=== PATIENT | female | born 2000 | race Caucasian/White ===

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

== ENCOUNTER 2018-03-01 03:19 | Emergency (ER) | payer SELFPAY ==
[2018-03-01] MEDS ORDERED: Ondansetron INJ* 2 MG/ML VIAL IV ONE (03:29)
[2018-03-01] MEDS ORDERED: NS 0.9% 1000 ML* 2,000 ML IV ONE (03:29)
--- NOTE | 2018-03-01 03:33 | ED ---
Substance Abuse/Use - HPI Summary HPI Summary: This is elodia Callaway documenting for attending Bao Covarrubias MD. This patient is a 17 year old F BIBA to [facility] or substance abuse. Pt reports drinking alcohol and using marijuana. LEVEL 5 CAVEAT: Exam limited due to the patient being intoxicated - History Of Current Complaint Chief Complaint: EDSubstanceAbuse Stated Complaint: ETOH Time Seen by Provider: 03/01/18 03:21 Hx Obtained From: Patient Hx Last Menstrual Period: currently Ingestion History: Type/Name Of Drug - etoh Overdose Characteristics: Oral, Inhalation Timing Of Abuse: Binge Use Severity Initially: Severe Severity Currently: Severe Character: Stuporous Associated Signs And Symptoms: Negative - fever - Allergies/Home Medications Allergies/Adverse Reactions: Allergies Allergy/AdvReac Type Severity Reaction Status Date / Time Penicillins Allergy Rash Verified 09/13/17 09:54 PMH/Surg Hx/FS Hx/Imm Hx Endocrine/Hematology History: Denies: Hx Diabetes Cardiovascular History: Denies: Hx Congenital Heart Disease, Hx Congestive Heart Failure, Hx Hypertension, Hx Pacemaker/ICD History: Denies: Hx Renal Disease Sensory History: Denies: Hx Hearing Aid Psychiatric History: Denies: Hx Panic Disorder Infectious Disease History: No Infectious Disease History: Denies: Traveled Outside the [place] in Last 30 Days - Family History Family History: LEVEL 5 CAVEAT: FHx and SHx LIMITED DUE TO PT CONDITION, INTOXICATED - Social History Alcohol Use: Rare Substance Use Type: Reports: None Smoking Status (MU): Former Smoker Review of Systems - ROS Summary Review of Systems Summary: LEVEL 5 CAVEAT: Exam limited due to the patient being intoxicated Negative: Fever Positive: Vomiting Psychological: Other - intoxicated All Other Systems Reviewed And Are Negative: No Physical Exam - Summary Physical Exam Summary: Appearance: Well appearing, no pain distress Skin: warm, dry, reflects adequate perfusion Head/face: normal Eyes: EOMI, OSMANI ENT: normal Neck: supple, non-tender Respiratory: CTA, breath sounds present Cardiovascular: RRR, pulses symmetrical Abdomen: non-tender, soft Bowel: present Musculoskeletal: normal, strength/ROM intact Neuro: normal, sensory motor intact, A&Ox3 Triage Information Reviewed: Yes Vital Signs On Initial Exam: Initial Vitals Temp Pulse Resp BP Pulse Ox 96.5 F 106 16 97/69 96 03/01/18 03:26 03/01/18 03:26 03/01/18 03:26 03/01/18 03:26 03/01/18 03:26 Vital Signs Reviewed: Yes Diagnostics - Vital Signs Vital Signs Temp Pulse Resp BP Pulse Ox 03/01/18 03:26 96.5 F 106 16 97/69 96 - Laboratory Result Diagrams: 03/01/18 03:33 03/01/18 03:33 Lab Statement: Any lab studies that have been ordered have been reviewed, and results considered in the medical decision making process. Course/Dx - Course Assessment/Plan: This patient is a 17 year old F BIBA to [facility] or substance abuse. Pt reports drinking alcohol and using marijuana. LEVEL 5 CAVEAT: Exam limited due to the patient being intoxicated. Bloodwork obtained. In the ED the patient was given zofran and IV fluids. She is feeling better after these medications. The patient is agreeable with this plan. - Diagnoses Provider Diagnoses: Alcohol intoxication Discharge - Sign-Out/Discharge Documenting (check all that apply): Patient Departure - Discharge Plan Condition: Stable Disposition: HOME Patient Education Materials: Abuse of Alcohol (ED), Polysubstance Abuse (ED) Referrals: Charissa Rojas MD [Primary Care Provider] - 3 Days Additional Instructions: RETURN TO THE EMERGENCY DEPARTMENT FOR CHANGING OR WORSENING SYMPTOMS - Billing Disposition and Condition Condition: STABLE Disposition: Home
[2018-03-01 03:49] LABS: ABS Basophils 0.3 10^3/ul (0-0.2); ABS Eosinophils 0.3 10^3/ul (0-0.6); ABS Lymphocytes 3.6 10^3/ul (1.0-4.8); ABS Monocytes 0.7 10^3/ul (0-0.8); ABS Neutrophils 4.5 10^3/ul (1.5-7.7); ABS Nucleated RBC 0 10^3/ul; Eosinophil % 2.9 % (0-6); Hematocrit 39 % (35-47); Hemoglobin 13.1 g/dl (12.0-16.0); Lymphocyte % 38.7 % (25-47); Mean Corpuscular HGB Conc 34 g/dl (31-36); Mean Corpuscular Hemoglobin 29 pg (27-31); Mean Corpuscular Volume 86 fL (80-97); Mean Platelet Volume 8.2 um3 (7.4-10.4); Nucleated Red Blood Cells % 0; Platelet Count 312 10^3/ul (150-450); Red Blood Count 4.51 10^6/ul (4.00-5.40); Red Cell Distribution Width 13 % (10.5-15); White Blood Count 9.3 10^3/ul (3.5-10.8)
[2018-03-01 04:07] LABS: EGFR Non-African American 104.3 (>60)
[2018-03-01] MEDS ORDERED: Potassium Chlor TAB* 20 MEQ TAB.ER PO ONE (06:07)
[2018-03-01 09:29] VITALS: BP 107/62
== END 2018-03-01 09:28 | disposition home or self-care (01) ==
LOC: ED 03:19
DX: F10.129 Alcohol abuse with intoxication, unspecified (principal); F12.10 Cannabis abuse, uncomplicated; Z87.891 Personal history of nicotine dependence; Z88.0 Allergy status to penicillin
CPT/HCPCS: 36415; 80053; 80307; 80320; 80329; 84443; 84702; 85025; 96361; 96374; 99282; A9270-GY; G0480; J2405

== ENCOUNTER 2019-05-02 14:36 | Emergency (ER) | payer OTHER ==
[2019-05-02] MEDS ORDERED: Lidocaine 1% MPF ** 5 ML VIAL INJ ONE (16:49)
--- NOTE | 2019-05-02 16:51 | ED ---
Head Injury - HPI Summary HPI Summary: Patient is a 18-year-old female who presents emergency department for head injury that occurred about 3 hours ago. Patient states she was playing around with a friend on her bed when she actually struck her head off the metal bar. Patient notes she felt dizzy afterwards but denies loss of consciousness. Patient complains of a mild headache and nausea. Tetanus immunization up to date. Patient denies past medical history. Symptoms are mild in severity. No current modifying factors. - History Of Current Complaint Chief Complaint: EDLacSutureRecheck Stated Complaint: HEAD LAC PER PT Time Seen by Provider: 05/02/19 15:55 Hx Obtained From: Patient Hx Last Menstrual Period: currently Pain Intensity: 2 - Allergies/Home Medications Allergies/Adverse Reactions: Allergies Allergy/AdvReac Type Severity Reaction Status Date / Time Penicillins Allergy Rash Verified 09/13/17 09:54 Home Medications: Home Medications Lisdexamfetamine Dimesylate [Vyvanse] 40 mg PO DAILY 05/02/19 [History Confirmed 05/02/19] Venlafaxine TAB (NF) 187 mg PO DAILY 05/02/19 [History Confirmed 05/02/19] PMH/Surg Hx/FS Hx/Imm Hx Previously Healthy: Yes Endocrine/Hematology History: Denies: Hx Diabetes Cardiovascular History: Denies: Hx Congenital Heart Disease, Hx Congestive Heart Failure, Hx Hypertension, Hx Pacemaker/ICD History: Denies: Hx Renal Disease Sensory History: Denies: Hx Hearing Aid Psychiatric History: Denies: Hx Panic Disorder Infectious Disease History: No Infectious Disease History: Denies: Traveled Outside the [place] in Last 30 Days - Family History Family History: LEVEL 5 CAVEAT: FHx and SHx LIMITED DUE TO PT CONDITION, INTOXICATED - Social History Alcohol Use: Rare Substance Use Type: Reports: None Smoking Status (MU): Former Smoker Review of Systems Eyes: Negative Positive: Nausea. Negative: Vomiting Musculoskeletal: Negative Positive: Other - scalp laceration Positive: Headache. Negative: Weakness, Paresthesia, Numbness, Syncope All Other Systems Reviewed And Are Negative: Yes Physical Exam Triage Information Reviewed: Yes Vital Signs On Initial Exam: Initial Vitals Temp Pulse Resp BP Pulse Ox 98.0 F 78 18 123/86 99 05/02/19 14:38 05/02/19 14:38 05/02/19 14:38 05/02/19 14:38 05/02/19 14:38 Vital Signs Reviewed: Yes Appearance: Positive: Well-Appearing - Patient sitting on bed with mother in no acute distress. Skin: Positive: Warm, Dry Head/Face: Positive: Other - 1.5 cm linear laceration noted to the left anterior scalp. No raccoon eyes or Brennan sign. No palpable skull deformity. Eyes: Positive: Normal, EOMI, OSMANI, Conjunctiva Clear ENT: Positive: TMs normal - No hemotympanum bilaterally Neck: Positive: Supple, Nontender - No midline tenderness. Musculoskeletal: Positive: Normal, Strength/ROM Intact Neurological: Positive: Normal, Alert, Oriented to Person Place, Time, CN Intact II-III, Finger to Nose - Normal, Facial Symmetry, Speech Normal. Negative: Pronator Drift Present Psychiatric: Positive: Affect/Mood Appropriate Procedures - Sedation Patient Received Moderate/Deep Sedation with Procedure: No - Laceration/Wound Repair 1 Location: head Description: Linear Anesthesia: Local, 1.0%, Lido Length, Depth and Shape: 1.5cm linear Betadine Prep?: Yes Laceration/Wound Explored: clean Closure: Addy #__ - 2 Layer Closure?: No Sterile Dressing Applied?: No Diagnostics - Vital Signs Vital Signs Temp Pulse Resp BP Pulse Ox 05/02/19 14:38 98.0 F 78 18 123/86 99 - Laboratory Lab Statement: Any lab studies that have been ordered have been reviewed, and results considered in the medical decision making process. Head Injury Course/Dx Course Of Treatment: Patient presenting with scalp laceration after minor head injury. No neurological deficits on exam or indication for brain CT based on [place] head CT rules. Wound repaired as noted above. Staple removal in 5 days. Ice intermittently. Tylenol or Motrin for pain as directed. To return to the ER for severe headache, vomiting, change in mental status or if concerned. Patient understands and agrees with plan. - Diagnoses Differential Diagnosis/HQI/PQRI: Cervical Sprain, Concussion Without LOC, Hematoma Provider Diagnoses: Head injury, Scalp laceration Discharge ED - Sign-Out/Discharge Documenting (check all that apply): Patient Departure - Discharge Plan Condition: Improved Disposition: HOME Patient Education Materials: Head Injury (ED), Staple Care (ED) Referrals: Charissa Rojas MD [Primary Care Provider] - Additional Instructions: Staple removal in 5 days Keep wound clean and dry Ice intermittently Tylenol or Motrin for pain as directed Return to ER for severe headache, vomiting, change in mental status, or if concerned - Billing Disposition and Condition Condition: IMPROVED Disposition: Home - Attestation Statements Provider Attestation: I was available for consultation for this patient. I did not evaluate the patient or participate in any medical decision making or disposition decisions unless I am specifically named in the chart as having consulted on the patient. If I have consulted on the patient, please see my own ED note on the patient encounter. Mina Sepulveda MD
[2019-05-02 17:19] VITALS: BP 120/80
== END 2019-05-02 17:15 | disposition home or self-care (01) ==
LOC: ED 14:36
DX: S09.90XA Unspecified injury of head, initial encounter (principal); S01.01XA Laceration without foreign body of scalp, initial encounter; W22.8XXA Striking against or struck by other objects, initial encounter; Y93.83 Activity, rough housing and horseplay; Y92.003 Bedroom of unspecified non-institutional (private) residence as the place of occurrence of the external cause; R51 Headache; R11.0 Nausea; Z88.0 Allergy status to penicillin; Z87.891 Personal history of nicotine dependence
CPT/HCPCS: 12001; 99282

== ENCOUNTER 2019-10-29 16:25 | Emergency (ER) | payer OTHER ==
--- NOTE | 2019-10-29 16:45 | UC ---
Throat Pain/Nasal Eddie HPI - HPI Summary HPI Summary: 19 yo female presents with sore throat. She tells me that since yesterday she has had a sore throat and subjective fever. Took advil today with little relief. She is eating, drinking, and tolerating po well. Denies recent travel or positive COVID exposure. Denies sinus symptoms, cough, rash, abdominal pain, n/v. - History of Current Complaint Stated Complaint: SORE THROAT Time Seen by Provider: 10/29/19 16:45 Hx Obtained From: Patient Hx Last Menstrual Period: currently Onset/Duration: Sudden Onset Severity: Mild Pain Intensity: 4 Pain Scale Used: 0-10 Numeric - Allergies/Home Medications Allergies/Adverse Reactions: Allergies Allergy/AdvReac Type Severity Reaction Status Date / Time Penicillins Allergy Rash Verified 10/29/19 17:16 Home Medications: Home Medications Lisdexamfetamine Dimesylate [Vyvanse] 40 mg PO DAILY PRN 05/02/19 [History Confirmed 10/29/19] Venlafaxine TAB (NF) 187 mg PO DAILY 05/02/19 [History Confirmed 10/29/19] Naproxen Sodium [Naproxen 220 mg] 220 mg PO BID PRN 10/29/19 [History Confirmed 10/29/19] PMH/Surg Hx/FS Hx/Imm Hx - Additional Past Medical History Additional PMH: ADHD - Surgical History Surgical History: None - Family History Known Family History: Positive: None - Social History Lives: With Family Alcohol Use: Rare Substance Use Type: None Smoking Status (MU): Former Smoker - Immunization History Vaccination Up to Date: Yes Review of Systems All Other Systems Reviewed And Are Negative: No Constitutional: Positive: Fever - subjective Skin: Positive: Negative Eyes: Positive: Negative ENT: Positive: Sore Throat Respiratory: Positive: Negative Cardiovascular: Positive: Negative Gastrointestinal: Positive: Negative Neurological/Mental Status: Positive: Negative Psychological: Positive: Negative Physical Exam - Summary Physical Exam Summary: GENERAL: NAD. WDWN. No pain distress. SKIN: No rashes, sores, lesions, or open wounds. HEENT: Head: AT/NC Eyes: Conjunctiva clear without inflammation or discharge. Ears: Hearing grossly normal. TMs intact, no bulging, erythema, or edema. Nose: Nasal mucosa pink and moist. NTTP maxillary and frontal sinus. Throat: Posterior oropharynx mild erythema and 2+ tonsillar enlargement. Mild white exudates. Uvula midline. No hoarse voice or muffled voice. NECK: Supple. Nontender. No lymphadenopathy. CHEST: CTAB. No r/r/w. No accessory muscle use. Breathing comfortably and in no distress. CV: RRR. Pulses intact. Cap refill <2seconds NEURO: Alert. PSYCH: Age appropriate behavior. Triage Information Reviewed: Yes Vital Signs: Laboratory Tests 10/29/19 17:32 Group A Strep Rapid Negative Vital Signs: Temp Pulse Resp BP Pulse Ox 99.6 F 68 16 108/66 97 10/29/19 17:30 10/29/19 17:30 10/29/19 17:30 10/29/19 17:30 10/29/19 17:30 Vital Signs Reviewed: Yes Throat Pain/Nasal Course/Dx - Course Course Of Treatment: POC strep negative. Suspect viral pharyngitis/tonsillitis. Advised supportive care. She is requesting COVID testing today. She has no symptoms of this and has had no known exposure. She continues to wish for COVID testing. Exam performed utilizing CDC recommended PPE. You are being tested for COVID-19. You need to quarantine yourself in a bedroom and bathroom only you are using. You may not leave the house. [facility] will contact you and notify of results when they are available. Advised to be on home isolation until cleared by the health department (3-6 days likely) Go to ED for increased SOB or any difficulty breathing - new or worsening symptoms. - Differential Dx/Diagnosis Provider Diagnosis: Sore throat Discharge ED - Sign-Out/Discharge Documenting (check all that apply): Patient Departure All imaging exams completed and their final reports reviewed: No Studies - Discharge Plan Condition: Stable Disposition: HOME Patient Education Materials: Pharyngitis (ED) Forms: COVID-19 Tested & Isolation Referrals: Rehana Callejas MD [Primary Care Provider] - Additional Instructions: STREP TEST NEGATIVE TODAY ALTHOUGH YOU HAVE NO SYMPTOMS OF COVID -- YOU REQUESTED TESTING TODAY You are being tested for COVID-19. You need to quarantine yourself in a bedroom and bathroom only you are using. You may not leave the house. [facility] will contact you and notify of results when they are available. Advised to be on home isolation until cleared by the health department (3-6 days likely) Go to ED for increased SOB or any difficulty breathing - new or worsening symptoms. - Billing Disposition and Condition Condition: STABLE Disposition: Home
--- OUTSIDE RECORDS SUMMARY | 2019-10-29 16:58 | XMS REPORT | Continuity of Care Document ---
:2000 External Reference #:[id number] Author Name Rehana Chow MD (transmitted by agent of provider October) Address [address], [place] [address] Care Team Providers Name Role Phone Charissa Rojas MD - Student in Care Team Information Occupational Therapy Department Chair [phone] an Organized Health Care Education/Training Program Rehana Chow MD - Family Medicine Care Team Information Occupational Therapy Department Chair Problems Active Problems Provider Date Mixed anxiety and depressive disorder Rehana Chow MD Onset: 10/03/2019 Note: started medications age 15, seeing therapist since age 9; doing well on venlafaxine; had been seeing therapist Attention deficit hyperactivity disorder, combined Rehana Chow MD Onset: type Note: diagnosed by Dr Sutton; does well on Vyvanse Social History Type Date Description Comments Sex Unknown Tobacco Use Start: Unknown End: Former Cigarette Smoker Unknown Smoking Status Reviewed: 10/03/19 Former Cigarette Smoker ETOH Use consumes 1-2 beers per day Tobacco Use Start: Unknown End: Patient is a former occasionally Unknown smoker Recreational Drug Use Denies Drug Use Exercise Type/Frequency Exercises regularly Seat Belt/Car Seat always uses car seat Guns in Home Negative For No Allergies, Adverse Reactions, Alerts Active Allergies Reaction Severity Comments Date Amoxicillin 06/22/2016 Penicillin 10/03/2019 Medications Active Medications SIG Qnty Indications Ordering Provider Date Venlafaxine HCL once a day, as Unknown 37.5mg directed Tablets Venlafaxine HCL ER 1 by mouth every Unknown day 150mg Tablets ER 24HR Vyvanse take 1 capsule by 30caps Rehana Chow MD 40mg Capsules mouth every day -- maximum daily dose of 1 per day Multivitamin Women 1 by mouth every Unknown day Tablets Immunizations Description No Information Available Vital Signs Date Vital Result Comment 10/03/2019 1:10pm Height 68 inches 5'8" Weight 121.00 lb without shoes Heart Rate 87 /min BP Systolic 116 mmHg BP Diastolic 77 mmHg Respiratory Rate 16 /min Body Temperature 98.1 F O2 % BldC Oximetry 97 % room air BMI (Body Mass Index) 18.4 kg/m2 07/07/2016 2:23pm Height 67 inches 5'7" Weight 118.00 lb Heart Rate 81 /min BP Systolic 110 mmHg BP Diastolic 74 mmHg Pain Level 3 BMI (Body Mass Index) 18.5 kg/m2 Blood Pressure Percentile 35 % Height Percentile 86 % Weight Percentile 39th Results Description No Information Available Procedures Description No Information Available Medical Devices Description No Information Available Encounters Type Date Location Provider Dx Diagnosis Office Visit 10/03/2019 [facility] Rehana Chow MD F41.8 Other specified 1:30p Clinic [facility] anxiety disorders F90.2 Attention-deficit hyperactivity disorder, combined type Z30.9 Encounter for contraceptive management, unspecified Assessments Date Code Description Provider 10/03/2019 F41.8 Mixed anxiety and depressive disorder Rehana Chow MD 10/03/2019 F90.2 Attention deficit hyperactivity disorder, combined Rehana Chow MD type 10/03/2019 Z30.9 Contraception care Rehana Chow MD Plan of Treatment Future Appointment(s):10/29/2019 2:00 pm - eRhana Chow MD at [facility] Functional Status Description No Information Available Mental Status Description No Information Available Referrals Description No Information Available
--- OUTSIDE RECORDS SUMMARY | 2019-10-29 16:58 | XMS REPORT | Continuity of Care Document ---
:2000 External Reference #:[id number] Author Name Rehana Chow MD (transmitted by agent of provider Crystal Randle) Address [address] [place] [address], [place] [address] Care Team Providers Name Role Phone Charissa Rojas MD - Student in Care Team Information File Machine Operator [phone] an Organized Health Care Education/Training Program Problems Active Problems Provider Date Mixed anxiety and depressive disorder Rehana Chow MD Onset: 10/03/2019 Note: started medications age 15, seeing therapist since age 9; doing well on venlafaxine; had been seeing therapist Attention deficit hyperactivity disorder, combined Rehana Chow MD Onset: type Note: diagnosed by Dr Sutton; does well on Vyvanse Social History Type Date Description Comments Sex Unknown ETOH Use consumes 1-2 beers per day Tobacco Use Start: Unknown End: Patient is a former occasionally Unknown smoker Recreational Drug Use Denies Drug Use Smoking Status Reviewed: 10/03/19 Patient is a former occasionally smoker Exercise Type/Frequency Exercises regularly Seat Belt/Car Seat always uses car seat Guns in Home Negative For No Allergies, Adverse Reactions, Alerts Active Allergies Reaction Severity Comments Date Amoxicillin 06/22/2016 Penicillin 10/03/2019 Medications Active Medications SIG Qnty Indications Ordering Provider Date Venlafaxine HCL once a day, as Unknown 37.5mg directed Tablets Venlafaxine HCL ER 1 by mouth every Unknown 150mg day Tablets ER 24HR Vyvanse Take 1 Capsule By Unknown 40mg Capsules Mouth Every Day -- Maximum Daily Dose Of 1 Per Day Multivitamin Women 1 by mouth every Unknown [...] Medical Devices Description No Information Available Encounters Description No Information Available Assessments Date Code Description Provider 10/03/2019 F41.8 Mixed anxiety and depressive disorder Rehana Chow MD 10/03/2019 F90.2 Attention deficit hyperactivity disorder, combined Rehana Chow MD type 10/03/2019 Z30.9 Contraception care Rehana Chow MD Plan of Treatment Future Appointment(s):10/16/2019 11:30 am - [facility]2019 - Rehana Chow MDF41.8 Mixed anxiety and depressive disorderFollow up:schedule 30 min appt for pap ttprbS91.2 Attention deficit hyperactivity disorder, combined typeZ30.9 Contraception care Functional Status Description No Information Available Mental Status Description No Information Available Referrals Description No Information Available
[2019-10-29 17:45] VITALS: BP 108/66
== END 2019-10-29 17:50 | disposition home or self-care (01) ==
LOC: UCEAST 16:25
DX: J02.9 Acute pharyngitis, unspecified (principal); F90.9 Attention-deficit hyperactivity disorder, unspecified type; Z79.899 Other long term (current) drug therapy; Z88.0 Allergy status to penicillin; Z87.891 Personal history of nicotine dependence
CPT/HCPCS: 87651; 99212; G0463

== ENCOUNTER 2020-06-04 11:36 | Inpatient (IN) ==
[2020-06-04 12:59] LABS: ABS Basophils 0.1 10^3/ul (0-0.2); ABS Eosinophils 0.1 10^3/ul (0-0.6); ABS Lymphocytes 2.2 10^3/ul (1.0-4.8); ABS Monocytes 0.4 10^3/ul (0-0.8); ABS Neutrophils 4.8 10^3/ul (1.5-7.7); Eosinophil % 1.5 %; Hematocrit 43 % (35-47); Hemoglobin 14.3 g/dL (12.0-16.0); Lymphocyte % 28.8 %; Mean Corpuscular HGB Conc 33 g/dL (31-36); Mean Corpuscular Hemoglobin 30 pg (27-31); Mean Corpuscular Volume 88 fL (80-97); Mean Platelet Volume 7.8 fL (7.4-10.4); Platelet Count 356 10^3/uL (150-450); Red Blood Count 4.84 10^6 /uL (3.70-4.87); Red Cell Distribution Width 14 % (10-15); White Blood Count 7.7 10^3/uL (3.5-10.8)
[2020-06-04] MEDS ORDERED: Ondansetron ODT 4 mg TAB 4 MG TAB SL PRN (12:59)
[2020-06-04 13:17] LABS: ALT 11 U/L (7-52); AST 18 U/L (13-39); Albumin 4.7 g/dL (3.2-5.2); Alkaline Phosphatase 55 U/L (34-104); Anion Gap 7 mmol/L (2-11); BUN/Creatinine Ratio 15.4 (8-20); Blood Urea Nitrogen 10 mg/dL (6-24); CO2 Carbon Dioxide 28 mmol/L (22-32); Calcium 8.9 mg/dL (8.6-10.3); Chloride 108 mmol/L (101-111); EGFR African American 139.2 (>60); EGFR Non-African American 115.1 (>60); Globulin 2.3 g/dL (2-4); Glucose 55 mg/dL (70-100); Potassium 3.6 mmol/L (3.5-5.0); Sodium 143 mmol/L (135-145)
[2020-06-04 13:18] LABS: Acetaminophen < 15 mcg/mL; Alcohol, S 165 mg/dL (<10); Salicylate < 2.50 mg/dL (<30)
[2020-06-04 13:30] LABS: TSH Ultra Thyroid Stim Horm 1.36 mcIU/mL (0.34-5.60)
[2020-06-04] MEDS ORDERED: Al Hydrox/Mg Hydrox/Simet LIQ 30 ML UDC PO PRN (18:54)
[2020-06-04] MEDS ORDERED: Venlafaxine XR 75 mg PO SCH (20:10)
[2020-06-05] MEDS ORDERED: Vitamin THERAPEUTIC TAB PO SCH (09:00)
[2020-06-05] MEDS ORDERED: Influenza VAC *QUAD* 2020-21* 0.5 ML SYRINGE IM ONE (09:00)
[2020-06-05 09:51] LABS: Cholesterol 160 mg/dL; HDL Cholesterol 66.9 mg/dL; LDL Cholesterol 78 mg/dL; Triglycerides 77 mg/dL
[2020-06-05 09:58] LABS: HCG Pregnancy < 0.60 mIU/mL
[2020-06-05 13:56] LABS: Urine Appearance Cloudy; Urine Bilirubin Negative (Negative); Urine Blood Negative (Negative); Urine Color Yellow; Urine Glucose Negative (Negative); Urine Ketones 1+ (Negative); Urine Nitrite Negative (Negative); Urine Protein Negative (Negative); Urine Specific Gravity 1.024 (1.010-1.030); Urine Urobilinogen Negative (Negative)
[2020-06-05 13:59] LABS: Urine Benzodiazepine Screen None Detected (None Detect); Urine Buprenorphine Screen None Detected (None Detect); Urine Cannabinoids Screen None Detected (None Detect); Urine Fentanyl Screen None Detected (None Detect); Urine Hydrocodone Screen None Detected (None Detect); Urine Opiates Screen None Detected (None Detect)
[2020-06-05 14:19] LABS: Urine Bacteria Absent (Absent); Urine Red Blood Cell 1+(3-5/hpf) (Absent); Urine Squamous Epithelial Cell Present (Absent); Urine White Blood Cell Trace(0-5/hpf) (Absent)
[2020-06-05] MEDS ORDERED: Venlafaxine XR 75 mg PO SCH ×2 (16:00→17:00)
[2020-06-05 17:21] LABS: HIV 4th Generation Nonreactive (Nonreactive)
[2020-06-06 01:13] LABS: Hepatitis B Surface Antigen Nonreactive (Nonreactive)
[2020-06-06 01:18] LABS: Hepatitis A Ab IgM Negative (Negative); Hepatitis B Core IgM Nonreactive (Nonreactive)
[2020-06-06 01:30] LABS: Hepatitis C Antibody Negative (Negative)
[2020-06-06 09:00] VITALS: BP 118/77
[2020-06-06 13:12] LABS: Chlamydia trachomatis NAA Negative (Negative); Neisseria gonorrhoeae (GC) NAA Negative (Negative)
== END 2020-06-06 12:00 | disposition home or self-care (01) | DRG 897 ==
LOC: ED 11:36 → BSU 16:00
PROVIDERS: ADMIT Psychiatry & Neurology Psychiatry; ATTEND Psychiatry & Neurology Psychiatry